=== PATIENT | male | born 1985 | race Caucasian/White ===

== ENCOUNTER → 2017-10-27 | Day surgery (SDC) | payer BC ==
[2017-10-21 08:03] VITALS: Ht 165.1 cm; Wt 75.0 kg
[~2017-10-27] VITALS: Ht 165.1 cm; Wt 75.0 kg
[~2017-10-27] MED LIST: ATROPINE SULFATE 0.1 MG/ML 5ML SYR IV PRN; BUPIVACAINE 0.5 % 5 MG/1 ML PF 10ML VIAL ONE; CEFAZOLIN 1000MG IV PUSH 7.5 ML IV SCH; EpHEDrine SULFATE INJ 50 MG/ML AMP IV PRN; FENTANYL CITRATE INJ 50 MCG/1 ML 2 ML VIAL IV PRN; FENTANYL CITRATE INJ 50 MCG/1 ML 2 ML VIAL ONE; FLUMAZENIL 0.1 MG/1 ML 10 ML VIAL IV PRN; HYDROmorphone INJ 2 MG/ML SYR/VIAL IV PRN; LABETALOL HCL IV 5 MG/ML 20ML IV PRN; LACTATED RINGER'S 1000ML 1,000 ML IV SCH; LIDOCAINE HCL 1% 20 ML VIAL ONE; LIDOCAINE HCL 2% 2 ML VIAL (20MG/ML) ONE; MEPERIDINE HCL 25 MG/ML CARP IV PRN; MIDAZOLAM HCL 1 MG/ML 2ML VIAL ONE; MULT-506 PO; NALOXONE HCL 0.4 MG/1 ML VIAL/CARP IV PRN; ONDANSETRON INJ 2 MG/ML 2 ML VIAL IV PRN; OXYCODONE/ACETAMINOPHEN 5-325 TAB PO PRN; PHENYLEPHRINE 100MCG/ML 5ML SYR IV PRN; PROPOFOL IV EMULSION 10 MG/ML 20 ML VIAL IV ONE; SODIUM CHLORIDE 0.9% 1000ML 1,000 ML IV SCH; TRAM-10 PO
--- NOTE | 2017-10-27 07:26 | History & Physical Bridge - [place] ---
H&P Re-Evaluation Bridge Note: I have examined the patient, reviewed the History & Physical and in the interval since the performance of the History & Physical I have noted the following changes of clinical significance: No changes noted
--- NOTE | 2017-10-27 08:18 | [facility] Post Operative Brief Note ---
Immediate Operative Summary Operative Date Oct 27, 2017. Pre-Operative Diagnosis Left Index Trigger Finger & Mass Post-Operative Diagnosis Same Procedure(s) Performed Left Index Finger Trigger Release; Flexor Tendon Sheath Cyst Excision Surgeon Dr. Taylor Popcorn Attendant Surgeon(s) Yesenia Keating PA-C Estimated Blood Loss None Findings Consistent with Post-Op Diagnosis Specimens None Drains None Anesthesia Type MAC Complication(s) none Disposition Disposition:
[2017-10-27 08:22] VITALS: TEMP 36.5
--- NOTE | 2017-10-27 08:22 | Discharge Instructions-SurgCtr ---
Discharge Instructions Date of Service Oct 27, 2017. Visit Reason for Visit: Left Index Trigger Finger & Mass Discharge Discharge Diagnosis / Problem: SAME ABOVE Discharge Goals Goal(s): Decrease discomfort, Improve function Activity Recommendations Activity Limitations: as noted below Lifting Limitations: gradually increase as tolerated Exercise/Sports Limitations: until after follow-up appointment Shower/Bathe: tomorrow Anesthesia . Post Anesthesia Instructions: If you have had General Anesthesia or IV Sedation: * Do not drive today. * Resume driving when surgeon permits. * Do not make important decisions or sign legal documents today. * Call surgeon for: 1. Temperature elevations greater than 101 degrees F. 2. Uncontrollable pain. 3. Excessive bleeding. 4. Persistent nausea and vomiting. 5. Medication intolerance (nausea, vomiting or rash). * For nausea and vomiting use only clear liquids such as: tea, soda, bouillon until nausea subsides, then gradually increase diet as tolerated. * If you have any concerns or questions, call your surgeon's office. If physician is unavailable and it is an emergency, call 911 or go to the nearest emergency room. . Instructions / Follow-Up Instructions / Follow-Up MEDICATIONS: * Resume previous medications unless instructed otherwise by your surgeon. * Always take pain medication on a full stomach or with food to avoid upset stomach. * Do not drink alcohol or drive while taking narcotics. * Ibuprofen or Tylenol may be taken if narcotic not needed. SPECIAL CARE INSTRUCTIONS: __ None _X_ Keep extremity elevated and iced x 48 hours; apply ice 20-30 minutes 8-10 times/day. May remove at night. __ Sling __24 hrs/day __ Remove at night __ Shoulder Immobilizer __ 24 hrs/day __ Remove at night _X_ Dressing __ Maintain until seen in office, may shower with plastic over site _X_ Remove dressings in 24-48 hours and then may shower _X_ Cover incisions with band-aids after showering __ Do not remove steri-strips Call physician if chills or temperature rises above 102 degrees or pain unrelieved by prescribed pain medications at . . Diet Recommendations Home Diet: resume previous diet Procedures Procedures Performed: Left Index Finger Trigger Release; Flexor Tendon Sheath Cyst Excision Pending Studies Studies pending at discharge: no Medical Emergencies . Who to Call and When: Medical Emergencies: If at any time you feel your situation is an emergency, please call 911 immediately. . Non-Emergent Contact Non-Emergency issues call your: Primary Care Provider . . "Provider Documentation" section prepared by Milton Keating. .
--- NOTE | 2017-10-27 08:33 | Anesthesia Progress Nt - [facility] ---
Anesthesia Post Op Note Date & Time Oct 27, 2017 at 08:33 Vital Signs Pain Intensity: 0 Vital Signs Past 12 Hours Date Time Temp Pulse Resp B/P (MAP) Pulse Ox O2 Delivery O2 Flow Rate FiO2 10/27/17 07:19 36.8 75 16 164/83 (110) 99 Room Air Notes Mental Status: alert / awake / arousable, participated in evaluation Pt Amnestic to Procedure: Yes Nausea / Vomiting: adequately controlled Pain: adequately controlled Airway Patency, RR, SpO2: stable & adequate BP & HR: stable & adequate Hydration State: stable & adequate Anesthetic Complications: no major complications apparent The patient is awake and comfortable. His vital signs in recovery are stable.
--- NOTE | 2017-10-27 08:40 | OPERATIVE REPORT ---
DATE OF OPERATION: 10/27/2017 PREOPERATIVE DIAGNOSIS: Left index trigger finger with associated cyst. POSTOPERATIVE DIAGNOSIS: Same. PROCEDURE: Release of A1 bryan with removal of cyst, scar tissue A1 bryan, left index finger. SURGEON: Dr. Aubrey Taylor. GRINDING ROOM INSPECTOR: Milton Keating PA-C. ANESTHESIOLOGIST: Dr. Man. ANESTHESIA: Local with IV sedation. DRAINS: None. COMPLICATIONS: None. CONDITION: The patient tolerated the procedure well and returned to recovery in apparent satisfactory condition. INDICATIONS FOR SURGERY: Chel is a 32-year-old male who has had a cyst in his index finger before distally. This is a new one approximately at A1 bryan area. He also has a slight triggering of his index finger and elected go ahead and proceed with surgery. Procedure, expected outcomes and side effects, and risks were all explained in detail. DESCRIPTION OF PROCEDURE: The patient was taken to the OR at which time he was placed supine on the operating table. He was given IV sedation. The left hand was prepped and draped in the usual sterile fashion for surgery. We went ahead and infiltrated the anticipated incision site with 1% Xylocaine. Then, we exsanguinated the hand and put a forearm tourniquet up to 250 mmHg. Using loupe magnification, we dissected down and found the A1 bryan, divided it, took the finger through a range of motion, no longer triggering. We found some scar tissue. There was more scar tissue on the bryan area. This was debrided out. The wound then was irrigated. Incision closed with interrupted 4-0 nylon sutures. Marcaine without epinephrine was placed in skin edges. We placed a sterile dressing of Xeroform, 4 x 4 gauze and a Coban and returned to recovery in apparent satisfactory condition. I attest to the content of the Intraoperative Record and any orders documented therein. Any exceptions are noted below. MTDD
[2017-10-27 08:54] VITALS: BP 120/76; PULSE 69; O2SAT 97
== END | disposition home or self-care (01) ==
LOC: X.SURG 07:07
PROVIDERS: ATTEND Orthopaedic Surgery
DX: M65.322 Trigger finger, left index finger (principal); M67.842 Other specified disorders of synovium, left hand; Z98.890 Other specified postprocedural states; Z98.52 Vasectomy status